=== PATIENT | female | born 1985 | race Asian ===

== ENCOUNTER 2018-09-18 05:57 | Inpatient (IN) | payer OTHER ==
[2018-09-17 09:38] LABS: RPR Titer ND
[2018-09-17 09:51] LABS: Protime INR 0.95
[2018-09-17 10:01] LABS: Absolute Lymphocytes (CBC) 1.7 K/uL (0.7-4.9); Absolute Monocytes 0.4 K/uL (0.1-1.3); Absolute Neutrophil 6.6 K/uL (1.8-8.0); Basophils % 0.3 % (0-1.3); Eosinophils % 0.7 % (0-4.4); Hematocrit 38.3 % (36.0-45.0); Lymphocytes % 19.6 % (15.3-44.8); MPV 8.1 fL (7.6-11.3); Monocytes % 4.2 % (3.3-12.3); RBC Red Blood Cell Count 4.14 M/uL (3.86-4.86)
--- NOTE | 2018-09-17 15:09 | PREOPHP ---
Date of Admission: 09/18/2018 History Of Present Illness: This is a 32-year-old 3, para 1, with 1 loss at around 32 to 34 weeks, has been seen in consultation with Dr. Brando Coburn, high-at risk paraprofessional, who has sa id delivery should occur at or before 37 weeks and we will proceed at 36 weeks and 6 days. The patie nt has had Celestone earlier in the in anticipation of an early delivery and she has a fema le fetus. She is Rh positive, immune to Rubella. She has been on Synthroid during her as well. Family History: Noncontributory. Maternal grandmother with hypertension. Allergies: NO ALLERGIES. Medications: She has been on vitamins and iron. Social History: She does not smoke. Physical Examination: HEENT: Clear. Pupils, equal, round, and reactive to light and accommodation. Conjunctivae well per fused. No oral, lingual, or buccal lesions. Chest and Lungs: Clear. Heart: Without murmurs, thrills, heaves, or rubs. Breasts: Not examined. Abdomen: Term size. Baby is vertex and estimated weight with ultrasound within the last 48 hours is 5 pounds and 12 ounces. Baby is head first, cervix is fingertip, soft. Extremities: Clear without edema, cyanosis, or clubbing. Plan: Infection, blood loss, anesthetic complications, injury to bladder, bowel, or ureter, all disc ussed. We will proceed with delivery earlier than normal secondary to high risk consultation and suggestion by Dr. Brnado Coburn. DEMI/KEANUL Voice ID: [id number]
[2018-09-17 21:26] LABS: RPR (Rapid Plasma Reagin) NON-REACT (NON-REACT)
[~2018-09-18 05:57] MED LIST: CEFAZOLIN 2GM (PREMIX IV) 2 GM/50 ML BAG IVPB SCH
[2018-09-18] MEDS ORDERED: Ringers Lactate 1,000 ML IV PRN (06:17)
[2018-09-18] MEDS ORDERED: FAMOTIDINE 20 MG/2 ML VIAL IV ONE (06:20)
[2018-09-18] MEDS ORDERED: NA CIT/CITRIC AC 30 ML ORAL UDC PO ONE (06:22)
[2018-09-18 06:32] VITALS: BMI 24.3
[2018-09-18] MEDS ORDERED: NA CIT/CITRIC AC 30 ML ORAL UDC ONE (06:48)
[2018-09-18] MEDS ORDERED: Phenylephrine HCl 10 MG/ML 1 ML VIAL ONE (06:57)
[2018-09-18] MEDS ORDERED: FENTANYL CITR 250 MCG/5 ML ONE (06:57)
[2018-09-18] MEDS ORDERED: MORPHINE SULFATE/PF 1 MG/ML (10 ML AMP) ONE (06:57)
[2018-09-18] MEDS ORDERED: OXYTOCIN 10 UNIT/ML ML IV ONE (06:57)
[2018-09-18] MEDS ORDERED: EPHEDRINE SULF 50 MG/ML VIAL ONE (06:57)
[2018-09-18] MEDS ORDERED: BUPIVACAINE 0.75% (PF) 2 ML SP ONE (06:58)
[2018-09-18] MEDS ORDERED: ONDANSETRON 4 MG/2 ML VIAL ONE (06:58)
[2018-09-18] MEDS ORDERED: NS 0.9% VIAL 10 ML ONE (06:58)
[2018-09-18] MEDS ORDERED: LIDOCAINE 2% MPF 5 ML VIAL ONE (06:59)
[2018-09-18] MEDS ORDERED: Ringers Lactate 1,000 ML IV SCH (07:00)
[2018-09-18] MEDS ORDERED: METOCLOPRAMIDE 10 MG/2mL INJ IV SCH (07:00)
[2018-09-18] MEDS ORDERED: CEFAZOLIN 1GM (PREMIX IV) 1 GM/50 ML BAG IV SCH (07:00)
[2018-09-18] MEDS ORDERED: CARBOPROST TROME 250 MCG/ML IM ONE ×2 (07:14→07:22)
[2018-09-18] MEDS ORDERED: METHYLERGONOVINE 0.2MG/ML AMP IM ONE ×2 (07:14→07:22)
[2018-09-18] MEDS ORDERED: CEFAZOLIN SODIUM 1 GM/VIAL ONE (07:26)
[2018-09-18] MEDS ORDERED: NA CHLORIDE 0.9% 100 ML IV ONE (07:26)
[2018-09-18] MEDS ORDERED: BISACODYL 10 MG RECTAL SUPP RECT PRN (08:45)
[2018-09-18] MEDS ORDERED: ACETAMINOPHEN 500 MG TAB PO PRN ×2 (08:45)
[2018-09-18] MEDS ORDERED: ONDANSETRON 4 MG (ODT) TAB PO PRN (08:45)
[2018-09-18] MEDS ORDERED: KETOROLAC 30 MG/ML INJ IM PRN (08:45)
[2018-09-18] MEDS ORDERED: ONDANSETRON 4 MG/2 ML VIAL IV PRN (08:45)
[2018-09-18] MEDS ORDERED: DIPHENHYDRAMINE 25 MG TAB/CAP PO PRN (08:45)
[2018-09-18] MEDS ORDERED: KETOROLAC 30 MG/ML INJ IV PRN (08:45)
[2018-09-18] MEDS ORDERED: D5LR 1,000 ML with OXYTOCIN 20 UNIT IV SCH ×2 (09:00)
[2018-09-18] MEDS ORDERED: OXYTOCIN/LR 20 UNIT/1,000 ML BAG IV SCH (09:00)
--- NOTE | 2018-09-18 09:49 | OP ---
Surgeon: Jay Mehta MD Anesthesiologist: Dr. Valero and group. Indication: This is a 32-year-old 3, para 1, 1 loss at 32 to 34 weeks, seen in consult ation with Brando Coburn, high corporate risk analyst in [place]. Dr. Coburn advised delivery at or before 3 7 weeks. The patient is 36 weeks 6 days. She has had Celestone during the , has a female f etus. Full preoperative counseling concerning procedures and possible complications, including infec tion, blood loss, anesthetic complications, injury to bladder, bowel, ureter, postoperative complicat ions, clots in legs, pneumonia. The patient knows fully well this does not constitute all the possib le problems that could occur during or following surgery. Anesthesia: Spinal block anesthesia. Descripton Of Procedure: Prepping and draping and time-out performed. Low transverse uterine incisi on created over previous incision site. The incision carried to the fascia. Significant scarring no rayne. Bilateral incision of the fascia and dissection anteriorly and posteriorly. Defect was seen in the peritoneum and retraction was applied. Low transverse uterine incision was made and an estimate d 6-pound female was delivered without difficulties, Apgars 9 and 9. Placenta was removed manually. Uterus was cleared of clot and blood and exteriorized. Cervical os was dilated with ring clamp. Th e uterus was closed with a running and locked stitch of 1 chromic followed by an imbricating stitch o f 1 chromic followed by several [id number] stitches along the incision line for complete hemosta sis. There was noted to have a large 4 cm at least anterior right fibroid just above the incision li ne. No other pelvic abnormalities were noted. Gutter was cleared of clot and blood. The uterus was replaced into the peritoneal cavity. Small bleeding was seen along the incision line. Again, the u terus was brought back out and again a 2-0 chromic was placed to stop any small bleeders. No further bleeding was seen. Estimated blood loss less than 1000 cc. The uterus was replaced into the perito max cavity. Muscle was closed with 0 Vicryl 3 interrupted sutures. The fascia was closed with 1 Vi cryl running and locked stitch from either angle to the midline. Subcutaneous tissue was closed with 2-0 plain. Small number of absorbable sanjay were placed. This incision was very irregular from t he previous incision. Antelope were then used. The patient had received 2 g of Ancef prior to the pr ocedure. Tolerated all procedures well. She was transferred back to her room in good condition. Final Diagnoses: Intrauterine gestation, 36 weeks 6 days, high-risk , followed by Brando coulter, delivery at 36 weeks and 6 days secondary to high risk consultation and advice, uterine fibroid, spinal block anesthesia, positive beta strep screen during the latter part of the . DEMI/SAGE Voice ID: [id number] Report ID: [id number]
--- NOTE | 2018-09-18 13:46 | PN ---
32-year-old female, 3, para 1, previous loss at 32 to 34 weeks gestation . Has been seen in consultation with Dr. Brando Coburn who has advised delivery at or before 37 weeks. Patient today is approximately 36 weeks 6 days, and we are proceeding with delivery at this time. Full preoperative counseling, concerning procedure, and possible complications including infection, b lood loss, anesthetic complications, injury to bladder, bowel, ureter, postoperative complications, c lots in legs, and pneumonia. The patient has been fully counseled this morning. Anesthesia has alre meredith seen patient. Baby looks good on the monitor. We are proceeding with surgery sometime during e next 45 minutes to an hour. DEMI/SAGE Voice ID: [id number] Report ID: [id number]
[2018-09-18] MEDS: Oxycodone HCl/Acetaminophen 1 TAB TAB PO PRN ×2 (16:50→22:24)
[2018-09-19] MEDS ORDERED: MAGNESIUM HYDROXIDE 8% 30 ML PO PRN (08:45)
[2018-09-19] MEDS: Oxycodone HCl/Acetaminophen 1 TAB TAB PO PRN ×2 (10:27→14:40)
[2018-09-19 16:42] LABS: HBsAG Nonreactive (Nonreactive)
--- NOTE | 2018-09-19 21:21 | P.PN ---
Date of Service: 09/19/18 Patient is a 32 y/o s/p repeat section POD#1. She is doing well. She is tolerating a regular diet. She is ambulating well. She is bonding with the baby. She is trying to breast feed and is using a pump to help express her milk. Selected Entries 09/19/18 08:00 Temperature 98.3 F Pulse Rate 74 Respiratory 18 Rate Blood Pressure 101/60 Pain Level 0 Laboratory Tests 09/17/18 09/18/18 09:31 16:10 WBC 8.8 Hgb 13.4 Hct 38.3 34.2 L Plt Count 143 L Vital sign stable General: Resting in bed no distress Head and neck: Normocephalic atraumatic, supple Respiratory: Symmetric nonlabored breathing Abdomen: Soft, mildly distended, mildly tender. Incision clean dry and intact Bilateral lower extremities: No clubbing cyanosis or edema. Assessment and plan patient is postop day 1 after repeat section she is doing well. Pain is well controlled. Discontinue IV discontinue Cuellar catheter. Encourage patient to ambulate. Possible discharge home tomorrow.
[2018-09-20] MEDS: IBUPROFEN 200 MG TAB PO PRN ×2 (00:30→07:55)
--- NOTE | 2018-09-20 10:28 | P.DS ---
Admission Date: 09/18/18 Discharge Date: 09/20/18 Disposition: ROUTINE DISCHARGE Discharge Condition: GOOD Brief History of Present Illness: Patient admitted for repeat ceasarean section. See H & P. Hospital Course: Patient did well following the delivery of the baby. She has been without difficulties. She is tolerating a regular diet. She is ambulating well and her pain is under control. She is voiding without difficulty. Vital Signs/Physical Exam: Temp Pulse Resp BP Pulse Ox 96.2 F L 61 18 90/50 L 09/20/18 07:48 09/20/18 07:48 09/20/18 07:48 09/20/18 07:48 General: Alert, In no apparent distress, Oriented x3 HEENT: Atraumatic Neck: Supple Respiratory: Normal air movement Cardiovascular: No edema, Normal pulses Gastrointestinal: Soft and benign, No rebound, No guarding (uterus firm palpable below umbilicus) Musculoskeletal: No clubbing, No swelling Integumentary: No rashes, No breakdown Neurological: Normal gait, Normal speech Laboratory Data at Discharge: WBC 8.8 K/uL (4.3-10.9) 09/17/18 09:31 Hgb 13.4 g/dL (12.0-15.0) 09/17/18 09:31 Hct 34.2 % (36.0-45.0) L 09/18/18 16:10 Plt Count 143 K/uL (152-406) L 09/17/18 09:31 PT 11.2 SECONDS (9.5-12.5) 09/17/18 09:31 INR 0.95 09/17/18 09:31 APTT 25.3 SECONDS (24.3-36.9) 09/17/18 09:31 Home Medications: Vit Calc,Iron,Folic [ Vitamins] 1 tab PO DAILY 03/20/16 Codeine/APAP [Tylenol W/Codeine #3 tab] 1 tab PO Q6HP PRN #24 tab 09/20/18 New Medications: Codeine/APAP [Tylenol W/Codeine #3 tab] 1 tab PO Q6HP PRN #24 tab PRN Reason: Pain Diet: Regular Activity: No lifting more than 10 lbs Followup: Gustabo Mehta MD [ACTIVE - CAN ADMIT] -
[2018-09-20 11:27] VITALS: BP 85/45; TEMP 96.6
== END 2018-09-20 12:00 | disposition home or self-care (01) | DRG 788 ==
LOC: 2ND-WC 05:57
PROVIDERS: ADMIT Specialist; ATTEND Specialist
PROC: 10D00Z1 Extraction of Products of Conception, Low, Open Approach (ICD-10-PCS; principal; 2018-09-18 07:30)
DX: O99.824 Streptococcus B carrier state complicating childbirth (principal); Z3A.36 36 weeks gestation of pregnancy; Z37.0 Single live birth
CPT/HCPCS: 36415; 85014; 85025; 85610; 85730; 86592; 86850; 86900; 86901; 87340; 88307; J0690; J2210; J2370; J2405; J2590; J2765; J3010